=== PATIENT | female | born 1935 | race Caucasian/White ===

== ENCOUNTER 2021-06-20 13:30 | Emergency (ER) | payer MEDICARE ==
[~2021-06-20] VITALS: Ht 149.9 cm; Wt 49.4 kg
[2021-06-20 15:03] LABS: BASOPHILS % (AUTO) 1 % (0-1); EOSINOPHILS % (AUTO) 2 % (1-7); LYMPHOCYTES % (AUTO) 29 % (22-44); MEAN CORPUSCULAR HEMOGLOBIN 33.5 pg (27.0-34.8); MEAN CORPUSCULAR HGB CONC 33.9 g/dL (32.4-35.8); MEAN PLATELET VOLUME 7.6 fL (7.4-10.4); MONOCYTES % (AUTO) 8 % (2-9); NEUTROPHILS % (AUTO) 60 % (42-75); PLATELET COUNT 297 x10^3/uL (130-400); RED BLOOD COUNT 3.34 x10^6/uL (3.82-5.3); RED CELL DISTRIBUTION WIDTH 15.2 % (9.6-15.2)
--- NOTE | 2021-06-20 15:04 | NUR ---
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
[2021-06-20 15:12] LABS: ALANINE AMINOTRANSFERASE 25 U/L (12-78); ALBUMIN 3.2 g/dL (3.4-5.0); ANION GAP 7 mmol/L (5-15); CALCIUM 9.3 mg/dL (8.5-10.1); CHLORIDE 102 mmol/L (98-107); CREATININE 0.92 mg/dL (0.55-1.02)
[2021-06-20 15:17] LABS: ALKALINE PHOSPHATASE 72 U/L (45-117); BILIRUBIN,TOTAL 0.4 mg/dL (0.2-1.0); TOTAL PROTEIN 7.2 g/dL (6.4-8.2); TROPONIN I < 0.015 ng/mL (0.000-0.045)
--- NOTE | 2021-06-20 15:34 | NUR ---
pt came into ed today for intermittent tingling and loss of motor control of hands. currently visiting from out [place] town states her hands seem to go numb/tingling for a bit and she cannot grab things or close her fingers. pt changed into gown, resting on gurney, provided warm blankets for comfort,friend at . bed in [facility], rails engaged, call light on lap, [facility].
[2021-06-20] MEDS ORDERED: CEFTRIAXONE 1,000 MG in DEXTROSE 5% 50 ML IVPB ONE (17:00)
[2021-06-20] MEDS ORDERED: METOPROLOL PO (17:05)
[2021-06-20] MEDS ORDERED: LEVO75TA5 PO (17:05)
[2021-06-20] MEDS ORDERED: GABA600T7 PO (17:05)
[2021-06-20 17:22] LABS: MICROSCOPIC AUTO
[2021-06-20 18:29] VITALS: BP 128/74
--- NOTE | 2021-06-20 18:30 | NUR ---
Patient/Friends given discharge instructions and they have confirmed that they understand the instructions. Patient ambulatory with steady gait, but opted for wheelchair out. NAD, all questions answered appropriately, denies additional needs at this time. No personal belongings left in room after discharge.
== END 2021-06-20 18:32 | disposition home or self-care (01) ==
LOC: ED 15:58 → EDIP 17:15 → UNDOADMIN 17:15 → UNDODISIN 19:01
DX: R20.2 Paresthesia of skin (principal); J18.9 Pneumonia, unspecified organism; R42 Dizziness and giddiness; R07.89 Other chest pain; R19.7 Diarrhea, unspecified; Z86.73 Personal history of transient ischemic attack (TIA), and cerebral infarction without residual deficits; Z87.891 Personal history of nicotine dependence
CPT/HCPCS: 36415; 70450; 71045; 80053; 81001; 83605; 84484; 85025; 87040; 87077; 87086; 87186; 93005; 96365; 99285; J0696

== ENCOUNTER 2021-08-03 11:05 | Inpatient (IN) | payer OTHER ==
[~2021-08-03] VITALS: Ht 149.9 cm; Wt 50.1 kg
[2021-08-04 12:29] VITALS: BP 108/65
== END 2021-08-04 17:26 | disposition home or self-care (01) | DRG 69 ==
LOC: ED 11:12 → EDIP 11:56 → SUATTDRO 12:03 → 4WST 16:10
PROVIDERS: ADMIT Hospitalist; ATTEND Internal Medicine
DX: G45.9 Transient cerebral ischemic attack, unspecified (principal); R47.01 Aphasia; G62.9 Polyneuropathy, unspecified; M06.9 Rheumatoid arthritis, unspecified; I10 Essential (primary) hypertension; I71.4 Abdominal aortic aneurysm, without rupture; Z86.73 Personal history of transient ischemic attack (TIA), and cerebral infarction without residual deficits